=== PATIENT | female | born 1935 | race Caucasian/White ===

== ENCOUNTER 2018-12-07 11:26 | Inpatient (IN) ==
[2018-12-07] MEDS ORDERED: IOPAMIDOL 100 ML BOTTLE IV ONE (11:27)
[2018-12-07] MEDS ORDERED: 0.9 % SODIUM CHLORIDE 1,000 ML IV ONE ×2 (11:38→12:46)
[2018-12-07 11:52] LABS: POC Blood Urea Nitrogen 8 mg/dl (8-23); POC CO2 28 mmol/L (22-30); POC Calcium, Ionized 1.15 mmol/L (1.16-1.32); POC Chloride 98 mmol/L (96-108); POC Creatinine 0.8 mg/dl (0.6-1.1); POC Glucose, Random 251 mg/dL (70-105); POC Potassium 3.9 mmol/L (3.3-5.1); POC Sodium 137 mmol/L (133-145)
--- NOTE | 2018-12-07 11:52 | Emergency Department Note ---
Nausea/Vomiting/Diarrhea HPI - General Chief complaint: Nausea/Vomiting/Diarrhea Stated complaint: nausea, vomiting, decreased LOC Time Seen by Provider: 12/07/18 11:46 Source: EMS Mode of arrival: ambulatory Limitations: altered mental status - History of Present Illness HPI Narrative: This patient began to feel ill yesterday with some nausea vomiting fever and decreased LOC. She denies diarrhea or abdominal pain denies cough. She is not a very good historian. - Related Data Allergies Allergy/AdvReac Type Severity Reaction Status Date / Time "Diuretics" Allergy Intermediate Rash Uncoded 11/09/17 07:55 Review of Systems All systems ED: reviewed and negative except as stated. Past Medical History - Past Medical History Medical history: Reports: atrial fibrillation, CVA, hypertension, myocardial infarction, other (Essential tremor) Surgical history ED: Reports: hip replacement, hysterectomy - Social History smoking status: Never smoker Physical Exam Limitations: altered mental status General appearance: alert Head: atraumatic, normocephalic Eye: Present: normal appearance ENT: normal exam, mucous membranes moist Neck: Present: normal inspection Chest: Present: normal inspection Respiratory: Present: normal lung sounds bilaterally Cardiovascular: Present: regular rate, normal rhythm, normal heart sounds Abdominal: Present: soft. Absent: distention, tenderness Neurological: Present: alert Psychiatric: Present: normal affect Skin: Present: warm, dry Course Vital Signs Temperature 101.6 F H 12/07/18 11:29 Pulse Rate 115 H 12/07/18 11:29 Respiratory Rate 26 H 12/07/18 11:29 Blood Pressure 149/76 12/07/18 11:29 Pulse Oximetry (%) 92 12/07/18 11:29 Temperature 99.0 F 12/07/18 13:50 Pulse Rate 103 H 12/07/18 14:44 Respiratory Rate 25 H 12/07/18 14:44 Blood Pressure 127/66 12/07/18 14:31 Pulse Oximetry (%) 97 12/07/18 14:44 Nausea/Vomiting/Diarrhea - MDM Narrative Medical decision making narrative: Lab work did show a lactic acid of 3.2 with a normal white count with [address] of chest abdomen pelvis was unremarkable for any source of infection and urine was clear. We did culture her and gave her Rocephin and Levaquin empirically. Also received 2 L of LR. She will be admitted to the hospital by Dr. Cobb. - Lab Data Lab results reviewed: Yes I reviewed the patient's lab results. Result diagrams: 12/07/18 11:40 12/07/18 11:40 Lab Results 12/07/18 12/07/18 12/07/18 Range/Units 11:40 11:40 11:40 WBC 9.3 (4.5-11.0) K/mcL RBC 4.62 (4.00-5.20) M/mcL Hgb 13.9 (12.0-15.0) g/dL Hct 42.3 (36.0-48.0) % POC Hct 43.0 (36.0-48.0) % MCV 91.5 (80.0-100.0) fL MCH 30.1 (26.0-34.0) pg MCHC 32.9 (31.0-36.0) g/dL RDW 13.9 (11.5-14.5) % Plt Count 252 (140-440) K/mcL MPV 8.0 (7.4-10.4) fL Total Counted 100 Seg Neutrophils % 70 (38-78) % Band Neutrophils % 27 H (0-10) % Lymphocytes % 1 L (15-49) % Monocytes % (Manual) 2 (1-12) % Platelet Estimate Normal (NORMAL) RBC Morphology Normal (NORMAL) VBG Lactic Acid 3.2 H (0.5-2.0) mmol/L POC Sodium 137 (133-145) mmol/L Sodium 136 (133-145) mmol/L POC Potassium 3.9 (3.3-5.1) mmol/L Potassium 3.9 (3.3-5.1) mmol/L POC Chloride 98 (96-108) mmol/L Chloride 95 L (96-108) mmol/L Carbon Dioxide 25 (22-30) mmol/L POC Total CO2 28 (22-30) mmol/L Anion Gap 16.0 (8-16) POC BUN 8 (8-23) mg/dl BUN 9 (8-23) mg/dl Creatinine 1.0 (0.6-1.1) mg/dl POC Creatinine 0.8 (0.6-1.1) mg/dl GFR Calculation 51 Glucose 251 H (70-105) mg/dL POC Glucose 251 H (70-105) mg/dL Calcium 9.3 (8.6-10.4) mg/dl POC WB Ioniz Calcium 1.15 L (1.16-1.32) mmol/L Total Bilirubin 0.7 (0.0-1.0) mg/dL AST 43 H (0-37) U/l ALT 35 (0-40) U/l Alkaline Phosphatase 80 (39-117) U/L Total Protein 7.2 (5.9-8.4) gm/dL Albumin 3.9 (3.2-5.2) gm/dL Globulin 3.3 (2.2-3.7) gm/dL Albumin/Globulin Ratio 1.2 (1.0-2.3) Urine Color Urine Appearance Urine pH (5.0-9.0) Ur Specific [place] (1.000-1.035) Urine Protein (NEG) mg/dL Urine Glucose (UA) (NEG) mg/dL Urine Ketones (NEG) mg/dL Urine Occult Blood (<0.03) mg/dL Urine Nitrate (NEG) Urine Bilirubin (NEG) mg/dL Urine Urobilinogen (NEG) mg/dL Ur Leukocyte Esterase (NEG) /uL Ur Culture Indicated? 12/07/18 Range/Units 12:20 WBC (4.5-11.0) K/mcL RBC (4.00-5.20) M/mcL Hgb (12.0-15.0) g/dL Hct (36.0-48.0) % POC Hct (36.0-48.0) % MCV (80.0-100.0) fL MCH (26.0-34.0) pg MCHC (31.0-36.0) g/dL RDW (11.5-14.5) % Plt Count (140-440) K/mcL MPV (7.4-10.4) fL Total Counted Seg Neutrophils % (38-78) % Band Neutrophils % (0-10) % Lymphocytes % (15-49) % Monocytes % (Manual) (1-12) % Platelet Estimate (NORMAL) RBC Morphology (NORMAL) VBG Lactic Acid (0.5-2.0) mmol/L POC Sodium (133-145) mmol/L Sodium (133-145) mmol/L POC Potassium (3.3-5.1) mmol/L Potassium (3.3-5.1) mmol/L POC Chloride (96-108) mmol/L Chloride (96-108) mmol/L Carbon Dioxide (22-30) mmol/L POC Total CO2 (22-30) mmol/L Anion Gap (8-16) POC BUN (8-23) mg/dl BUN (8-23) mg/dl Creatinine (0.6-1.1) mg/dl POC Creatinine (0.6-1.1) mg/dl GFR Calculation Glucose (70-105) mg/dL POC Glucose (70-105) mg/dL Calcium (8.6-10.4) mg/dl POC WB Ioniz Calcium (1.16-1.32) mmol/L Total Bilirubin (0.0-1.0) mg/dL AST (0-37) U/l ALT (0-40) U/l Alkaline Phosphatase (39-117) U/L Total Protein (5.9-8.4) gm/dL Albumin (3.2-5.2) gm/dL Globulin (2.2-3.7) gm/dL Albumin/Globulin Ratio (1.0-2.3) Urine Color Yellow Urine Appearance Clear Urine pH 8.0 (5.0-9.0) Ur Specific [place] 1.013 (1.000-1.035) Urine Protein Neg (NEG) mg/dL Urine Glucose (UA) 50 A (NEG) mg/dL Urine Ketones 5/tr A (NEG) mg/dL Urine Occult Blood Neg (<0.03) mg/dL Urine Nitrate Neg (NEG) Urine Bilirubin Neg (NEG) mg/dL Urine Urobilinogen Neg (NEG) mg/dL Ur Leukocyte Esterase Neg (NEG) /uL Ur Culture Indicated? No - Radiology Data Radiology results reviewed: Yes I reviewed the patient's radiology results. Disposition Pt seen by [facility]/PA only: No Clinical Impression: Sepsis Disposition: Xfer As Inpt ([facility]) Referrals: Ivette Hutson MD [Primary Care Provider] - Time of Disposition: 15:18
--- NOTE | 2018-12-07 12:23 | XRay Report ---
HISTORY: Fever nausea and vomiting FINDINGS: There is a small streaky opacity adjacent to the left diaphragm. This could be atelectasis or inflammation. The remainder the lung campuzano are clear. The heart size is normal. The aorta is mildly tortuous. Comparison with the prior exam from 06/27/14 shows a small infiltrate at the left lung base is a new finding. IMPRESSION: Mild inflammation or discoid atelectasis at the left lung base Interpreted and Authenticated by: Horace Brice 12/07/18
[2018-12-07 12:25] LABS: Hematocrit 42.3 % (36.0-48.0); Hemoglobin 13.9 g/dL (12.0-15.0); Mean Cell Volume 91.5 fL (80.0-100.0); Mean Corpuscular HGB Conc 32.9 g/dL (31.0-36.0); Platelet Count 252 K/mcL (140-440); RBC 4.62 M/mcL (4.00-5.20); Red Cell Distribution Width 13.9 % (11.5-14.5); WBC 9.3 K/mcL (4.5-11.0)
[2018-12-07 12:44] LABS: ALT/SGPT 35 U/l (0-40); AST/SGOT 43 U/l (0-37); Albumin 3.9 gm/dL (3.2-5.2); Albumin/Globulin Ratio 1.2 (1.0-2.3); Alkaline Phosphatase 80 U/L (39-117); Bilirubin,Total 0.7 mg/dL (0.0-1.0); Blood Urea Nitrogen 9 mg/dl (8-23); Calcium 9.3 mg/dl (8.6-10.4); Carbon Dioxide 25 mmol/L (22-30); Chloride 95 mmol/L (96-108); Globulin 3.3 gm/dL (2.2-3.7); Glomerular Filtration Rate 51; Glucose 251 mg/dL (70-105)
[2018-12-07] MEDS ORDERED: ACETAMINOPHEN 325 MG TABLET PO ONE (12:50)
[2018-12-07 12:52] LABS: Band Neutrophils % 27 % (0-10); Lymphocytes % 1 % (15-49); Monocytes % (Manual) 2 % (1-12); Platelet Estimate NORMAL (NORMAL); RBC Morphology NORMAL (NORMAL); Segmented Neutrophils % 70 % (38-78)
[2018-12-07 13:15] LABS: Appearance,Urine CLEAR; Bilirubin,Urine NEG (NEG); Color,Urine YELLOW; Culture Indicated,Urine NO; Glucose,Urine (UA) 50 mg/dL (NEG); Ketones,Urine 5/TR mg/dL (NEG); Leukocyte Esterase,Urine NEG /uL (NEG); Nitrate,Urine NEG (NEG); Protein,Urine NEG (NEG); Specific Gravity,Urine 1.013 (1.000-1.035); Urine Blood NEG mg/dL (<0.03); Urobilinogen,Urine NEG (NEG)
[2018-12-07] MEDS ORDERED: LEVOFLOXACIN 750 MG/150 ML BAG IV ONE (15:02)
[2018-12-07] MEDS ORDERED: cefTRIAXone 1 GM VIAL IV ONE (15:02)
--- NOTE | 2018-12-07 15:15 | Cat Scan Report ---
History: Sepsis of unknown etiology, pain in the chest and abdomen TECHNIQUE: The patient was imaged following oral and intravenous contrast scanning from the thoracic inlet through the symphysis pubis. Sagittal and coronal reformats were created along with axial MIPS images of the chest. The radiation exposure was limited using dose reduction technology. CHEST: There are bands of scar or discoid atelectasis in both lung bases as well as the inferior lateral segment of the right middle lobe and inferior segment of lingula. There is mild traction bronchiectasis in the medial basal segment of the right lower lobe. There is no evidence of pneumonia, pulmonary mass, abscess or pleural effusion. No abnormally enlarged lymph nodes are present. The central pulmonary arteries are normal without evidence of emboli. The heart is normal in size and contour. A moderate amount calcified plaque is present in the left anterior descending and circumflex arteries. Is also moderate amount of plaque along the wall of a normal caliber thoracic aorta. Abdomen and pelvis: Patient has moderately severe fatty infiltration throughout the liver. Liver is normal in size and there is no evidence of a mass. The gallbladder is been removed. There is some air within nondilated intrahepatic ducts. This is probably due to prior sphincterotomy. The bile ducts are not abnormally distended. There is no evidence of a bile leak. The spleen is normal in size and homogeneous. Is no evidence of mass or inflammation the pancreas. Patient has mild bilateral adrenal hyperplasia. A 7 mm cortical cyst is present laterally in the middle third of the left kidney. The kidneys are otherwise normal without evidence of a mass, calculus, hydronephrosis or inflammation. Oral contrast has passed through stomach and normal small intestine into the colon without obstruction. There are multiple noninflamed diverticula in the sigmoid colon. No mass, abscess or ascites or lymphadenopathy are present within the abdomen or pelvis. There is a moderate amount calcified plaque along the wall of a normal caliber abdominal aorta. Patient has fusion in the lower lumbar spine and degenerative disc disease throughout the mid and upper lumbar spine and lower thoracic spine. IMPRESSION: Moderately severe fatty infiltration throughout the liver Sigmoid diverticulosis Scar versus atelectasis in both lung bases No evidence of pneumonia and no abdominal abscess Dr. Meza was called with the results Interpreted and Authenticated by: Horace Brice 12/07/18
--- NOTE | 2018-12-07 15:51 | Internal Med History&Physical ---
Medical - H&P: HPI Patient information: Note initiated : 12/07/18 at 3:44 pm Service Date, if different from initiated Date: [] Patient: Elva Osuna a 83 y/o F admitted on for nausea, vomiting, decreased LOC. Chief Complaint: [] History of present illness: Ms. Osuna is a 83 year old F lives by herself with family living next to presents to the emergency room today for evaluation of fever altered mental sta tus and nausea and vomiting abdominal pain. The patient was normal last night around 8 PM when the family checked on her, this morning when the [id number] came on to check on her at around 8:00 the patient was sitting in the chair, confused with vomit all around her, vomit was dark had some food material in it no obvious blood. The patient was not responding appropriately to the questions appeared to be warm and was therefore brought to the emergency room for further evaluation On my evaluation patient appeared alert and oriented, according to the patient and the family she is nearly back to baseline symptoms have resolved since admission, she denies any eating of stale food or eating outside denies any sick contacts, denies any black stools, admits to having severe GERD or reflux d isease takes cholestyramine for that and Prilosec according to her. She admits to epigastric abdominal pain but denies any crampy lower abdominal pain denies any urinary complaints denies any constipation or diarrhea denies any melena. The patient has chronic headache and chronic blurring of vision denies any difficulty in swallowing denies any shortness of breath or chest pain does have some chronic cough. Patient has chronic aches and pains but no new joint pain skin rashes, she has history of depression that seems to be stable. At baseline patient is fairly independent and is able to carry out her activities of daily living without any support. On presenting to the emergency room patient was febrile with a temperature of more than 102, tachycardic and intermittently tachypneic with respirations more than 20. Blood pressure was stable. Labs show a normal WBC count and normal hemoglobin platelets 252 however the bands are 27 lactic acid elevated at 3.2 chemistries unremarkable glucose elevated at 251 AST 43 Chest x-ray shows mild inflammation versus scarring at the left lung base, CT chest abdomen pelvis according to the ER provider is interpreted as negative patient does have diverticulosis. Given the fact that patient had met the sepsis screen, has elevated lactic acid and fever she is being admitted to the hospital for further management All systems: reviewed and no additional remarkable complaints except as stated (As per HPI rest negative) Medical - H&P: PMH Medical history: Hypertension Diabetes, prediabetes according to patient Tachycardia patient on Inderal Hyperlipidemia History of coronary artery disease status post [place] when she had a stroke History of CVA with left-sided weakness Surgical history: History of cholecystectomy History of hysterectomy Shoulder surgery Hip replacement Family history: reviewed and not pertinent Pertinent family history: Brother has diabetes Social history: Lives by herself Fairly independent in activities of daily living Denies any history of smoking Denies drinking alcohol Denies any other recreational drug use Medical - H&P: Meds Home Medications Medication Instructions Recorded Confirmed Type Aspirin [Lite Coat Aspirin] 325 mg PO DAILY 12/07/18 12/07/18 History Citalopram [Celexa] 20 mg PO DAILY 12/07/18 12/07/18 History Escitalopram [Lexapro] 10 mg PO DAILY 12/07/18 12/07/18 History Estradiol [Estrace] 2 mg PO DAILY 12/07/18 12/07/18 History FLUoxetine HCL [PROzac] 10 mg PO DAILY 12/07/18 12/07/18 History LORazepam [Ativan] 0.5 mg PO HS 12/07/18 12/07/18 History Losartan [Cozaar] 50 mg PO DAILY 12/07/18 12/07/18 History Omeprazole [PriLOSEC] 20 mg PO DAILY 12/07/18 12/07/18 History Penicillin Vk [Pen Vk] 500 mg PO QID 12/07/18 12/07/18 History Propranolol [Inderal] 10 mg PO TID 12/07/18 12/07/18 History Simvastatin [Zocor] 20 mg PO HS 12/07/18 12/07/18 History Allergies Allergy/AdvReac Type Severity Reaction Status Date / Time "Diuretics" Allergy Intermediate Rash Uncoded 11/09/17 07:55 Medical - H&P: Exam - Constitutional Vitals: Temp Pulse Resp BP Pulse Ox 99.0 F 102 H 25 H 121/62 92 12/07/18 13:50 12/07/18 15:16 12/07/18 15:16 12/07/18 15:16 12/07/18 15:16 Exam: GENERAL: The patient is a well-developed, well-nourished in no apparent distress. Is alert and oriented x3. VITAL SIGNS: Reviewed and as noted elsewhere. HEENT: Head is normocephalic and atraumatic. Extraocular muscles are intact. Pupils are equal, round, and reactive to light. Nares appeared normal. Mouth appears any without lesions. Mucous membranes are moist. NECK: Normal to inspection, Supple, No lymphadenopathy or thyromegaly. LUNGS: Air entry equal on both sides, no wheezing, crackles or rhonchi noted. No accessory muscles of respiration HEART: Regular rate and rhythm normal, S1 and S2 heard, no Gallop, S3 or Rub Noted, No Gross murmur heard. ABDOMEN: Soft, mild epigastric tenderness, abdomen is nondistended. Positive bowel sounds. No hepatomegaly noted, no obvious splenomegaly was noted. EXTREMITIES: No cyanosis, clubbing, rash, lesions or edema. NEUROLOGIC: Cranial nerves II through XII are grossly intact. Motor and Sensory System Grossly Intact PSYCHIATRIC: Normal affect, Normal Mood. Appropriate Behavior. SKIN: No ulceration or wounds noted, No jaundice, No rash noted. Medical - H&P: Reslt - Labs CBC & Chem 7: 12/07/18 11:40 12/07/18 11:40 Labs: Short CBC 12/07/18 Range/Units 11:40 WBC 9.3 (4.5-11.0) K/mcL Hgb 13.9 (12.0-15.0) g/dL Hct 42.3 (36.0-48.0) % Plt Count 252 (140-440) K/mcL BMP 12/07/18 11:40 Sodium 136 Potassium 3.9 Chloride 95 L Carbon Dioxide 25 BUN 9 Creatinine 1.0 Glucose 251 H Calcium 9.3 Liver Function 12/07/18 Range/Units 11:40 Total Bilirubin 0.7 (0.0-1.0) mg/dL AST 43 H (0-37) U/l ALT 35 (0-40) U/l Alkaline Phosphatase 80 (39-117) U/L Albumin 3.9 (3.2-5.2) gm/dL Urine 12/07/18 Range/Units 12:20 Urine Color Yellow Urine Appearance Clear Urine pH 8.0 (5.0-9.0) Ur Specific [place] 1.013 (1.000-1.035) Urine Protein Neg (NEG) mg/dL Urine Glucose (UA) 50 A (NEG) mg/dL Medical - H&P: A/P - Narrative A/P Narrative: A/P Sepsis, Q sofa score of 2 -Source of infection uncertain, given likely GI pathology IV Zosyn for now -Blood cultures have been sent. -pt has responded to initial resuscitation Nausea/VOmiting -trend Hb, IV PPI -IV fluids, symptomatic management. Lactic acid -IV fluids, trend lactate, Hypertension -bp borderline in ER, monitor for now -Hold bp x 24 hrs for now -resume once bp stable x 24 hrs Hyperlipidemia -resume statin Depression /Anxiety -Multiple meds noted on file, -not sure if patient would be on all these meds as they all belong to same group -resume lexapro, will need to verify the rest Chronic pain -apap for now History of CVA/CAD -continue asa DVT hep sq DNR code Regular diet.
[2018-12-07] MEDS ORDERED: ACETAMINOPHEN 325 MG TABLET PO PRN (16:59)
[2018-12-07] MEDS ORDERED: NALOXONE HCL 0.4 MG/ML VIAL IV PRN (16:59)
[2018-12-07] MEDS ORDERED: ONDANSETRON 4 MG/2 ML VIAL IV PRN (16:59)
[2018-12-07] MEDS: LACTATED RINGERS 1,000 ML IV SCH ×2 (17:15→21:59)
[2018-12-07] MEDS: PIPERACILLIN SODIUM/TAZOBACTAM 3.375 GM in DEXTROSE 5% IN WATER 50 ML IV SCH ×2 (18:30→23:48)
[2018-12-07] MEDS: HYDROcodone/APAP 10/325MG TABLET PO PRN (19:38)
[2018-12-07] MEDS ORDERED: SIMVASTATIN 20 MG TABLET PO SCH (21:00)
[2018-12-07] MEDS ORDERED: LORazepam 0.5 MG TABLET PO SCH (21:00)
[2018-12-07] MEDS: 0.9 % SODIUM CHLORIDE 10 ML SYRINGE IV SCH (21:01)
[2018-12-07] MEDS: HEPARIN 5,000 UNIT/ML VIAL SQ SCH (21:01)
[2018-12-08] MEDS ORDERED: HYDROCODONE PO SCH
[2018-12-08] MEDS ORDERED: ACETAMINOPHEN PO SCH
[2018-12-08] MEDS: HYDROcodone/APAP 10/325MG TABLET PO PRN ×4 (03:59→23:25)
[2018-12-08] MEDS: PIPERACILLIN SODIUM/TAZOBACTAM 3.375 GM in DEXTROSE 5% IN WATER 50 ML IV SCH ×3 (05:42→16:54)
[2018-12-08] MEDS: 0.9 % SODIUM CHLORIDE 10 ML SYRINGE IV SCH ×3 (05:43→21:07)
[2018-12-08 07:19] LABS: Basophils # (Auto) 0 K/mcL (0.0-0.3); Basophils % (Auto) 0.3 % (0.0-2.0); Eosinophils # (Auto) 0 K/mcL (0.0-0.7); Eosinophils % (Auto) 0.1 % (0.0-7.0); Granulocytes % (Auto) 86.1 % (38.0-78.0); Hematocrit 36.3 % (36.0-48.0); Hemoglobin 11.9 g/dL (12.0-15.0); Lymphocytes # (Auto) 0.8 K/mcL (1.5-4.8); Lymphocytes % (Auto) 7.7 % (15.5-49.0); Mean Cell Volume 92.7 fL (80.0-100.0); Mean Corpuscular HGB Conc 32.8 g/dL (31.0-36.0); Mean Platelet Volume 8.4 fL (7.4-10.4); Monocytes # (Auto) 0.6 K/mcL (0.1-0.9); Monocytes % (Auto) 5.8 % (1.0-12.0); Platelet Count 218 K/mcL (140-440); RBC 3.91 M/mcL (4.00-5.20); Red Cell Distribution Width 13.6 % (11.5-14.5)
[2018-12-08 07:53] LABS: ALT/SGPT 27 U/l (0-40); AST/SGOT 29 U/l (0-37); Albumin/Globulin Ratio 0.9 (1.0-2.3); Alkaline Phosphatase 54 U/L (39-117); Bilirubin,Direct < 0.2 mg/dL (0.0-0.3); Bilirubin,Total 0.6 mg/dL (0.0-1.0); Blood Urea Nitrogen 7 mg/dl (8-23); Calcium 8.5 mg/dl (8.6-10.4); Carbon Dioxide 23 mmol/L (22-30); Chloride 101 mmol/L (96-108); Globulin 3.2 gm/dL (2.2-3.7); Glomerular Filtration Rate 67; Glucose 146 mg/dL (70-105); Lactate Dehydrogenase 215 U/L (94-250); Triglycerides 72 mg/dl (<150)
[2018-12-08] MEDS ORDERED: MAGNESIUM SULFATE 2 GM/50 ML BAG IV ONE (08:01)
[2018-12-08] MEDS: HEPARIN 5,000 UNIT/ML VIAL SQ SCH ×2 (08:35→21:06)
[2018-12-08] MEDS ORDERED: ASPIRIN 325 MG ENTERIC COATED TABLET PO SCH (09:00)
[2018-12-08] MEDS ORDERED: CHOLESTYRAMINE/ASPARTAME 4 GM POWD.PACK PO SCH (09:00)
[2018-12-08] MEDS ORDERED: ESCITALOPRAM 10 MG TABLET PO SCH (09:00)
[2018-12-08] MEDS ORDERED: ACETAMINOPHEN 325 MG TABLET PO PRN (10:03)
[2018-12-08] MEDS ORDERED: NALOXONE HCL 0.4 MG/ML VIAL IV PRN (10:03)
[2018-12-08] MEDS ORDERED: ONDANSETRON 4 MG/2 ML VIAL IV PRN (10:03)
--- NOTE | 2018-12-08 10:27 | Internal Med Progress Note ---
Medical - PN: Subj Patient information: Note initiated : 12/08/18 at 10:25 am Service Date, if different from initiated Date: [] Patient: Elva Osuna a 83 y/o F admitted on 12/07/18 for nausea, vomiting, decreased LOC. Chief Complaint: [] Interval history: Ms. Osuna is a 83 year old F lives by herself with family living next to presents to the emergency room today for evaluation of fever altered mental sta tus and nausea and vomiting abdominal pain. The patient was normal last night around 8 PM when the family checked on her, this morning when the [id number] came on to check on her at around 8:00 the patient was sitting in the chair, confused with vomit all around her, vomit was dark had some food material in it no obvious blood. The patient was not responding appropriately to the questions appeared to be warm and was therefore brought to the emergency room for further evaluation On my evaluation patient appeared alert and oriented, according to the patient and the family she is nearly back to baseline symptoms have resolved since admission, she denies any eating of stale food or eating outside denies any sick contacts, denies any black stools, admits to having severe GERD or reflux d isease takes cholestyramine for that and Prilosec according to her. She admits to epigastric abdominal pain but denies any crampy lower abdominal pain denies any urinary complaints denies any constipation or diarrhea denies any melena. The patient has chronic headache and chronic blurring of vision denies any difficulty in swallowing denies any shortness of breath or chest pain does have some chronic cough. Patient has chronic aches and pains but no new joint pain skin rashes, she has history of depression that seems to be stable. At baseline patient is fairly independent and is able to carry out her activities of daily living without any support. On presenting to the emergency room patient was febrile with a temperature of more than 102, tachycardic and intermittently tachypneic with respirations more than 20. Blood pressure was stable. Labs show a normal WBC count and normal hemoglobin platelets 252 however the bands are 27 lactic acid elevated at 3.2 chemistries unremarkable glucose elevated at 251 AST 43 Chest x-ray shows mild inflammation versus scarring at the left lung base, CT chest abdomen pelvis according to the ER provider is interpreted as negative patient does have diverticulosis. Given the fact that patient had met the sepsis screen, has elevated lactic acid and fever she is being admitted to the hospital for further management 12/08 Patient seen and examined, no acute overnight events tolerating p.o. diet well sitting comfortably in the chair Labs are stable lactic acidosis resolved Discontinue Holman catheter transfer to medical status Microbiology is negative so far Pertinent ROS: Denies headache, dizziness Denies chest pain, palpitations Denies cough or shortness of breath Denies abdominal pain, nausea or vomiting. - Constitutional Vitals: Vital Signs Temp Pulse Resp BP Pulse Ox 98.0 F 99 H 24 H 132/69 93 12/08/18 07:44 12/08/18 08:00 12/08/18 07:44 12/08/18 07:44 12/08/18 07:44 Period Temp Pulse Resp BP Sys/Brooke Pulse Ox Last 24 Hr 97.5 F-101.6 F 93-115 16-34 95-162/62-87 90-100 Intake and Output 12/07/18 12/08/18 12/08/18 21:59 05:59 13:59 Intake Total 2200 1350 410 Output Total 2700 800 800 Balance -500 550 -390 Weight 185 lb 9.6 oz 185 lb 9.6 oz Patient Weight 12/09/18 05:59 Weight 185 lb 9.6 oz Intake & Output: Intake & Output 12/07/18 12/08/18 12/08/18 21:59 05:59 13:59 Intake Total 2200 1350 410 Output Total 2700 800 800 Balance -500 550 -390 Weight 185 lb 9.6 oz 185 lb 9.6 oz Intake: IV 2200 1050 50 Sodium Chloride 0.9% 1,000 ml @ 1000 Wide Open IV BOLUS ONE Rx#: [id number] Lactated Ringers 1,000 ml @ 250 1000 mls/hr IV .Q4H NARA Rx#: [id number] Zosyn 3.375 gm In Dextrose 5% 50 50 50 in Water 50 ml @ 100 mls/hr IV Q6H NARA Rx#:[id number] Oral 300 360 Output: Urine Catheter Amount 1650 800 800 Void Amount 1050 Other: Meal Pckt saltines Breakfast Percent of Meal Consumed 100% 90 Feeding Ability Independent Independent Urine Appearance Clear Sediment Uretheral (Holman) Clear Clear Urine Color Pale Dark Yellow Uretheral (Holman) Pale Urine Odor Normal Strong Uretheral (Holman) Normal Normal Exam: Constitutional; Afebrile, cooperative, alert, not in distress. Eyes- No icterus, , No periorbital swelling Ears- Ext ear normal, hearing normal to conversation. Neck- Midline trachea, supple Respiratory system: Air Entry equal on both sides, No crackles or wheezing, no rhonchi. CVS- Rate rhythm regular, S1,S2 heard, no gallop, no rub. Abdomen- Soft nontender abdomen, no organomegaly, no tenderness, no guarding or rigidity, [employer]- AOOx3, moving all extremities, no gross focal deficit noted. Medical - PN: Obj Da - Labs CBC & Chem 7: 12/08/18 03:45 12/08/18 03:45 Labs: Abnormal Lab Results 12/08/18 12/08/18 12/07/18 03:45 03:45 12:20 RBC 3.91 L Hgb 11.9 L Gran % 86.1 H Lymph % (Auto) 7.7 L Gran # 8.6 H Lymph # (Auto) 0.8 L Band Neutrophils % Lymphocytes % VBG Lactic Acid Chloride BUN 7 L Glucose 146 H POC Glucose Calcium 8.5 L POC WB Ioniz Calcium Phosphorus 2.0 L GGT 107 H AST Albumin 3.0 L Albumin/Globulin Ratio 0.9 L Urine Glucose (UA) 50 A Urine Ketones 5/tr A 12/07/18 12/07/18 12/07/18 11:40 11:40 11:40 RBC Hgb Gran % Lymph % (Auto) Gran # Lymph # (Auto) Band Neutrophils % 27 H Lymphocytes % 1 L VBG Lactic Acid 3.2 H Chloride 95 L BUN Glucose 251 H POC Glucose 251 H Calcium POC WB Ioniz Calcium 1.15 L Phosphorus GGT AST 43 H Albumin Albumin/Globulin Ratio Urine Glucose (UA) Urine Ketones Meds: Medications Acetaminophen (Tylenol) 650 mg PO Q6HP PRN PRN Reason: PAIN/FEVER > 101 Hydrocodone Bitart/Acetaminophen ([place] 10/325mg) 1 tab PO Q6HP PRN PRN Reason: Pain Aspirin (Ecotrin) 325 mg PO DAILY [facility] Cholestyramine Resin (Questran Light) 4 gm PO QDAY NARA Heparin Sodium (Porcine) (Heparin) 5,000 unit SQ Q12 NARA Piperacillin Sod/Tazobactam (Sod 3.375 gm/ Dextrose) 50 mls @ 100 mls/hr IV Q6H NARA; Protocol Lorazepam (Ativan) 0.5 mg PO HS NARA Naloxone HCl (Narcan) 0.1 mg IV Q2MIN PRN PRN Reason: Opiate Reversal Ondansetron HCl (Zofran) 4 mg IV Q4HP PRN PRN Reason: Nausea And Vomiting Simvastatin (Zocor) 20 mg PO HS NARA Sodium Chloride (Saline Flush) 10 ml IV Q8 [facility] Medical - PN: A/P - Time Spent With Patient Total time spent is greater than 50% in coordination of care (as documented) at patient's floor/unit and/or counseling patient: - Narrative A/P Narrative: A/P Sepsis, Q sofa score of 2 -sepsis resolved -Source of infection uncertain, given likely GI pathology IV Zosyn for now -Blood cultures have been sent, await results Nausea/VOmiting -trend Hb, IV PPI -IV fluids, symptomatic management. -resolved, pt tolerating po diet now. Lactic acid -resolved Hypertension -resume home bp meds now, that bp is stable Hyperlipidemia -resumed statin Depression /Anxiety -Multiple meds noted on file, initially however on further review patient is not taking any medications for this issue. Discontinue all medication Chronic pain -apap for now History of CVA/CAD -continue asa DVT hep sq DNR code Regular diet. Medical - PN: Qual - Stroke Symptom Onset Unknown: No - VTE Deep Vein Thrombosis/Pulmonary Embolism Present on Admission: No
[2018-12-08] MEDS: LOSARTAN 50 MG TABLET PO SCH (10:58)
--- NOTE | 2018-12-08 12:56 | Internal Med Progress Note ---
Medical - PN: Subj Patient information: Note initiated : 12/08/18 at 12:51 pm Service Date, if different from initiated Date: [] Patient: Elva Osuna a 83 y/o F admitted on 12/07/18 for nausea, vomiting, decreased LOC. Chief Complaint: [] Interval history: Ms. Osuna is a 83 year old F lives by herself with family living next to presents to the emergency room today for evaluation of fever altered mental sta tus and nausea and vomiting abdominal pain. The patient was normal last night around 8 PM when the family checked on her, this morning when the ctorhzgh-pe-fzl came on to check on her at around 8:00 the patient was sitting in the chair, confused with vomit all around her, vomit was dark had some food material in it no obvious blood. The patient was not responding appropriately to the questions appeared to be warm and was therefore brought to the emergency room for further evaluation On my evaluation patient appeared alert and oriented, according to the patient and the family she is nearly back to baseline symptoms have resolved since admission, she denies any eating of stale food or eating outside denies any sick contacts, denies any black stools, admits to having severe GERD or reflux d isease takes cholestyramine for that and Prilosec according to her. She admits to epigastric abdominal pain but denies any crampy lower abdominal pain denies any urinary complaints denies any constipation or diarrhea denies any melena. The patient has chronic headache and chronic blurring of vision denies any difficulty in swallowing denies any shortness of breath or chest pain does have some chronic cough. Patient has chronic aches and pains but no new joint pain skin rashes, she has history of depression that seems to be stable. At baseline patient is fairly independent and is able to carry out her activities of daily living without any support. On presenting to the emergency room patient was febrile with a temperature of more than 102, tachycardic and intermittently tachypneic with respirations more than 20. Blood pressure was stable. Labs show a normal WBC count and normal hemoglobin platelets 252 however the bands are 27 lactic acid elevated at 3.2 chemistries unremarkable glucose elevated at 251 AST 43 Chest x-ray shows mild inflammation versus scarring at the left lung base, CT chest abdomen pelvis according to the ER provider is interpreted as negative patient does have diverticulosis. Given the fact that patient had met the sepsis screen, has elevated lactic acid and fever she is being admitted to the hospital for further management 12/08 Patient seen and examined, no acute overnight events tolerating p.o. diet well sitting comfortably in the chair Labs are stable lactic acidosis resolved Discontinue Holman catheter transfer to medical status Microbiology is negative so far 12/09 - Constitutional Vitals: Vital Signs Temp Pulse Resp BP Pulse Ox 98.0 F 99 H 24 H 132/69 93 12/08/18 07:44 12/08/18 10:28 12/08/18 07:44 12/08/18 07:44 12/08/18 07:44 Period Temp Pulse Resp BP Sys/Brooke Pulse Ox Last 24 Hr 97.5 F-101.6 F 93-112 16-34 95-162/62-85 91-100 Intake and Output 12/07/18 12/08/18 12/08/18 21:59 05:59 13:59 Intake Total 2200 1350 410 Output Total 2700 800 800 Balance -500 550 -390 Weight 84.187 kg 84.187 kg Patient Weight 12/09/18 05:59 Weight 84.187 kg Intake & Output: Intake & Output 12/07/18 12/08/18 12/08/18 21:59 05:59 13:59 Intake Total 2200 1350 410 Output Total 2700 800 800 Balance -500 550 -390 Weight 84.187 kg 84.187 kg Intake: IV 2200 1050 50 Sodium Chloride 0.9% 1,000 ml @ 1000 Wide Open IV B[facility] Rx#: [id number] Lactated Ringers 1,000 ml @ 250 1000 mls/hr IV .Q4H [facility] Rx#: [id number] Zosyn 3.375 gm In Dextrose 5% 50 50 50 in Water 50 ml @ 100 mls/hr IV Q6H [facility] Rx#:[id number] Oral 300 360 Output: Urine Catheter Amount 1650 800 800 Void Amount 1050 Other: Meal Pckt saltines Breakfast Percent of Meal Consumed 100% 90 Feeding Ability Independent Independent Urine Appearance Clear Sediment Uretheral (Holman) Clear Clear Urine Color Pale Dark Yellow Uretheral (Holman) Pale Urine Odor Normal Strong Uretheral (Holman) Normal Normal Exam: General: Alert, Awake, No acute Distress Eyes/N/T: EOMI, Head/Neck: neck supple, CV: RRR, No murmurs, Pulm: Clear b/l, no wheezing/rhonchi/rales Abd: soft, nontender, +BS x4 Ext: no clubbing/cyanosis/edema Neuro: Alert, no focal deficits, moves all extremities, Skin: warm/dry Medical - PN: Obj Da - Labs CBC & Chem 7: 12/08/18 03:45 12/08/18 03:45 Labs: Abnormal Lab Results 12/08/18 12/08/18 12/07/18 03:45 03:45 12:20 RBC 3.91 L Hgb 11.9 L Gran % 86.1 H Lymph % (Auto) 7.7 L Gran # 8.6 H Lymph # (Auto) 0.8 L Band Neutrophils % Lymphocytes % VBG Lactic Acid Chloride BUN 7 L Glucose 146 H POC Glucose Calcium 8.5 L POC WB Ioniz Calcium Phosphorus 2.0 L GGT 107 H AST Albumin 3.0 L Albumin/Globulin Ratio 0.9 L Urine Glucose (UA) 50 A Urine Ketones 5/tr A 12/07/18 12/07/18 12/07/18 11:40 11:40 11:40 RBC Hgb Gran % Lymph % (Auto) Gran # Lymph # (Auto) Band Neutrophils % 27 H Lymphocytes % 1 L VBG Lactic Acid 3.2 H Chloride 95 L BUN Glucose 251 H POC Glucose 251 H Calcium POC WB Ioniz Calcium 1.15 L Phosphorus GGT AST 43 H Albumin Albumin/Globulin Ratio Urine Glucose (UA) Urine Ketones Meds: Medications Acetaminophen (Tylenol) 650 mg PO Q6HP PRN PRN Reason: PAIN/FEVER > 101 Hydrocodone Bitart/Acetaminophen ([place] 10/325mg) 1 tab PO Q6HP PRN PRN Reason: Pain Last Admin: 12/08/18 10:58 Dose: 1 tab Documented by: Aspirin (Ecotrin) 325 mg PO DAILY [facility] Cholestyramine Resin (Questran Light) 4 gm PO QDAY [facility] Heparin Sodium (Porcine) (Heparin) 5,000 unit SQ Q12 [facility] Piperacillin Sod/Tazobactam (Sod 3.375 gm/ Dextrose) 50 mls @ 100 mls/hr IV Q6H [facility]; Protocol Lorazepam (Ativan) 0.5 mg PO HS [facility] Losartan Potassium (Cozaar) 50 mg PO DAILY [facility] Last Admin: 12/08/18 10:58 Dose: 50 mg Documented by: Naloxone HCl (Narcan) 0.1 mg IV Q2MIN PRN PRN Reason: Opiate Reversal Ondansetron HCl (Zofran) 4 mg IV Q4HP PRN PRN Reason: Nausea And Vomiting Propranolol HCl (Inderal) 10 mg PO TID [facility] Simvastatin (Zocor) 20 mg PO HS [facility] Sodium Chloride (Saline Flush) 10 ml IV Q8 [facility] Medical - PN: A/P - Time Spent With Patient Total time spent is greater than 50% in coordination of care (as documented) at patient's floor/unit and/or counseling patient: - Narrative A/P Narrative: A: *Sepsis: resolved -Source of infection uncertain, likely GI pathology -Lactic acidosis resolved -now afebrile *N/V: *HTN/HLD: *Depression/anxiety: *Chronic pain: *h/o CAD/CVA: on ASA/BB/Statin *GERD * P: -Zosyn, blood cultures pending -IVF - -Continue home ARB/BB -cont home ASA/statin -IV PPI - -ppx: Heparin/home ppi Medical - PN: Qual - Stroke Symptom Onset Unknown: No - VTE Deep Vein Thrombosis/Pulmonary Embolism Present on Admission: No
[2018-12-08] MEDS ORDERED: CALCIUM CARBONATE 500 MG TAB.CHEW CHEWED PRN (15:05)
[2018-12-08] MEDS: PROPRANOLOL 10 MG TABLET PO SCH ×2 (16:48→21:06)
[2018-12-08] MEDS ORDERED: LORazepam 0.5 MG TABLET PO SCH (21:00)
[2018-12-08] MEDS ORDERED: SIMVASTATIN 20 MG TABLET PO SCH (21:00)
[2018-12-09] MEDS: PIPERACILLIN SODIUM/TAZOBACTAM 3.375 GM in DEXTROSE 5% IN WATER 50 ML IV SCH ×2 (05:29)
[2018-12-09] MEDS: 0.9 % SODIUM CHLORIDE 10 ML SYRINGE IV SCH (05:29)
--- NOTE | 2018-12-09 07:10 | Internal Med Progress Note ---
Medical - PN: Subj Patient information: Note initiated : 12/09/18 at 7:08 am Service Date, if different from initiated Date: [] Patient: Elva Osuna a 83 y/o F admitted on 12/07/18 for nausea, vomiting, decreased LOC. Chief Complaint: [] Interval history: Ms. Osuna is a 83 year old F lives by herself with family living next to presents to the emergency room today for evaluation of fever altered mental stat us and nausea and vomiting abdominal pain. The patient was normal last night around 8 PM when the family checked on her, this morning when the [id number] came on to check on her at around 8:00 the patient was sitting in the chair, confused with vomit all around her, vomit was dark had some food material in it no obvious blood. The patient was not responding appropriately to the questions appeared to be warm and was therefore brought to the emergency room for further evaluation On my evaluation patient appeared alert and oriented, according to the patient and the family she is nearly back to baseline symptoms have resolved since admission, she denies any eating of stale food or eating outside denies any sick contacts, denies any black stools, admits to having severe GERD or reflux di sease takes cholestyramine for that and Prilosec according to her. She admits to epigastric abdominal pain but denies any crampy lower abdominal pain denies any urinary complaints denies any constipation or diarrhea denies any melena. The patient has chronic headache and chronic blurring of vision denies any difficulty in swallowing denies any shortness of breath or chest pain does have some chronic cough. Patient has chronic aches and pains but no new joint pain skin rashes, she has history of depression that seems to be stable. At baseline patient is fairly independent and is able to carry out her activities of daily living without any support. On presenting to the emergency room patient was febrile with a temperature of more than 102, tachycardic and intermittently tachypneic with respirations more than 20. Blood pressure was stable. Labs show a normal WBC count and normal hemoglobin platelets 252 however the bands are 27 lactic acid elevated at 3.2 chemistries unremarkable glucose elevated at 251 AST 43 Chest x-ray shows mild inflammation versus scarring at the left lung base, CT chest abdomen pelvis according to the ER provider is interpreted as negative patient does have diverticulosis. Given the fact that patient had met the sepsis screen, has elevated lactic acid and fever she is being admitted to the hospital for further management 12/08 Patient seen and examined, no acute overnight events tolerating p.o. diet well sitting comfortably in the chair Labs are stable lactic acidosis resolved Discontinue Holman catheter transfer to medical status Microbiology is negative so far 12/09 Patient states she has right upper quadrant achy pain which is constant. She is different than her acid reflux at home. She did have a small brown soft stool yesterday per nursing note. No fevers or chills. A little bit of nausea this morning and feels she has a bit of a stomachache because she is hungry. Wanting to go home. Review of Systems: denies headache/fever/chills/vomiting/chest pain/cough/dyspnea/diarrhea. Otherwise see above. - Constitutional Vitals: Vital Signs Temp Pulse Resp BP Pulse Ox 98.5 F 92 H 18 151/82 95 12/09/18 03:45 12/09/18 03:45 12/09/18 03:45 12/09/18 03:45 12/09/18 03:45 Period Temp Pulse Resp BP Sys/Brooke Pulse Ox Last 24 Hr 98.0 F-99 F 89-99 16-24 132-154/69-82 90-95 Intake and Output 12/08/18 12/09/18 12/09/18 21:59 05:59 13:59 Intake Total 320 350 50 Output Total 1800 1126 200 Balance -1480 -776 -150 Weight 82.781 kg Intake & Output: Intake & Output 12/08/18 12/09/18 12/09/18 21:59 05:59 13:59 Intake Total 320 350 50 Output Total 1800 1126 200 Balance -1480 -776 -150 Weight 82.781 kg Intake: IV 50 50 50 Zosyn 3.375 gm In Dextrose 5% 50 50 50 in Water 50 ml @ 100 mls/hr IV Q6H [facility] Rx#:[id number] Oral 270 300 Output: Void Amount 1800 1125 200 # of times incontinent of urine 1 Other: Meal Nourishment/Supplement Percent of Meal Consumed 90 Feeding Ability Independent Urine Appearance Clear Clear Urine Color Pale Bright Yellow Urine Odor Normal Normal Stool Size Small Stool Color Brown Stool Consistency Soft # Bowel Movements 1 Exam: General: Alert, Awake, No acute Distress Eyes/N/T: EOMI, Head/Neck: neck supple, CV: RRR, No murmurs, Pulm: Clear b/l, no wheezing/rhonchi/rales Abd: soft, not particularly tender on palpating over the abdomen including right upper quadrant, no epigastric tenderness to palpation , +BS x4 Ext: no clubbing/cyanosis/edema Neuro: Alert, no focal deficits, moves all extremities, Skin: warm/dry Medical - PN: Obj Da - Labs CBC & Chem 7: 12/09/18 03:50 12/09/18 03:50 Labs: Abnormal Lab Results 12/08/18 12/08/18 12/07/18 03:45 03:45 12:20 RBC 3.91 L Hgb 11.9 L Gran % 86.1 H Lymph % (Auto) 7.7 L Gran # 8.6 H Lymph # (Auto) 0.8 L Band Neutrophils % Lymphocytes % VBG Lactic Acid Chloride BUN 7 L Glucose 146 H POC Glucose Calcium 8.5 L POC WB Ioniz Calcium Phosphorus 2.0 L GGT 107 H AST Albumin 3.0 L Albumin/Globulin Ratio 0.9 L Urine Glucose (UA) 50 A Urine Ketones 5/tr A 12/07/18 12/07/18 12/07/18 11:40 11:40 11:40 RBC Hgb Gran % Lymph % (Auto) Gran # Lymph # (Auto) Band Neutrophils % 27 H Lymphocytes % 1 L VBG Lactic Acid 3.2 H Chloride 95 L BUN Glucose 251 H POC Glucose 251 H Calcium POC WB Ioniz Calcium 1.15 L Phosphorus GGT AST 43 H Albumin Albumin/Globulin Ratio Urine Glucose (UA) Urine Ketones Meds: Medications Acetaminophen (Tylenol) 650 mg PO Q6HP PRN PRN Reason: PAIN/FEVER > 101 Hydrocodone Bitart/Acetaminophen ([place] 10/325mg) 1 tab PO Q6HP PRN PRN Reason: Pain Last Admin: 12/08/18 23:25 Dose: 1 tab Documented by: Aspirin (Ecotrin) 325 mg PO DAILY [facility] Calcium Carbonate/Glycine (Tums) 500 mg CHEWED Q4HP PRN PRN Reason: Dyspepsia Last Admin: 12/08/18 16:49 Dose: 500 mg Documented by: Cholestyramine Resin (Questran Light) 4 gm PO QDAY [facility] Heparin Sodium (Porcine) (Heparin) 5,000 unit SQ Q12 [facility] Last Admin: 12/08/18 21:06 Dose: 5,000 unit Documented by: Piperacillin Sod/Tazobactam (Sod 3.375 gm/ Dextrose) 50 mls @ 100 mls/hr IV Q6H [facility]; Protocol Last Infusion: 12/09/18 06:12 Dose: Infused Documented by: Lorazepam (Ativan) 0.5 mg PO HS [facility] Last Admin: 12/08/18 21:06 Dose: 0.5 mg Documented by: Losartan Potassium (Cozaar) 50 mg PO DAILY [facility] Last Admin: 12/08/18 10:58 Dose: 50 mg Documented by: Naloxone HCl (Narcan) 0.1 mg IV Q2MIN PRN PRN Reason: Opiate Reversal Omeprazole (Prilosec) 20 mg PO ACB [facility] Last Admin: 12/09/18 06:51 Dose: Not Given Documented by: Ondansetron HCl (Zofran) 4 mg IV Q4HP PRN PRN Reason: Nausea And Vomiting Propranolol HCl (Inderal) 10 mg PO TID [facility] Last Admin: 12/08/18 21:06 Dose: 10 mg Documented by: Simvastatin (Zocor) 20 mg PO HS [facility] Last Admin: 12/08/18 21:06 Dose: 20 mg Documented by: Sodium Chloride (Saline Flush) 10 ml IV Q8 [facility] Last Admin: 12/09/18 05:29 Dose: 10 ml Documented by: Medical - PN: A/P - Time Spent With Patient Total time spent is greater than 50% in coordination of care (as documented) at patient's floor/unit and/or counseling patient: - Narrative A/P Narrative: A: *Sepsis: resolved, -Source of infection uncertain, likely GI pathology -Lactic acidosis resolved, bandemia resolved, fever defervesced *N/V: 2/2 gastroenteritis *HTN/HLD: *Depression/anxiety: *Chronic pain: *h/o CAD/CVA: on ASA/BB/Statin *GERD * P: -Zosyn to augmentin -f/u AXR for abd pain -Continue home ARB/BB -cont home ASA/statin -IV PPI - -ppx: Heparin/home ppi Medical - PN: Qual - Stroke Symptom Onset Unknown: No - VTE Deep Vein Thrombosis/Pulmonary Embolism Present on Admission: No
[2018-12-09 07:27] LABS: Hematocrit 38.3 % (36.0-48.0); Hemoglobin 12.6 g/dL (12.0-15.0); Mean Cell Volume 92.5 fL (80.0-100.0); Mean Corpuscular HGB Conc 32.8 g/dL (31.0-36.0); Mean Platelet Volume 8.2 fL (7.4-10.4); Platelet Count 263 K/mcL (140-440); RBC 4.14 M/mcL (4.00-5.20); Red Cell Distribution Width 13.8 % (11.5-14.5); WBC 8.2 K/mcL (4.5-11.0)
[2018-12-09] MEDS ORDERED: OMEPRAZOLE 20 MG CAPSULE PO SCH (07:30)
[2018-12-09 07:57] LABS: ALT/SGPT 28 U/l (0-40); AST/SGOT 27 U/l (0-37); Albumin 3.6 gm/dL (3.2-5.2); Albumin/Globulin Ratio 1.1 (1.0-2.3); Alkaline Phosphatase 58 U/L (39-117); Bilirubin,Direct < 0.2 mg/dL (0.0-0.3); Bilirubin,Total 0.4 mg/dL (0.0-1.0); Blood Urea Nitrogen 7 mg/dl (8-23); Calcium 9.3 mg/dl (8.6-10.4); Carbon Dioxide 23 mmol/L (22-30); Chloride 101 mmol/L (96-108); Globulin 3.4 gm/dL (2.2-3.7); Glomerular Filtration Rate 67; Glucose 165 mg/dL (70-105); Lactate Dehydrogenase 209 U/L (94-250); Phosphorous 2.3 mg/dL (2.7-4.5); Triglycerides 122 mg/dl (<150)
[2018-12-09] MEDS ORDERED: BISMUTH SUBSALICYLATE 15 ML ORAL.SUSP PO ONE (08:24)
[2018-12-09] MEDS ORDERED: ASPIRIN 325 MG ENTERIC COATED TABLET PO SCH (09:00)
[2018-12-09] MEDS ORDERED: CHOLESTYRAMINE/ASPARTAME 4 GM POWD.PACK PO SCH (09:00)
[2018-12-09 09:13] LABS: Band Neutrophils % 3 % (0-10); Eosinophils % (Manual) 3 % (0-7); Lymphocytes % 18 % (15-49); Monocytes % (Manual) 13 % (1-12); Platelet Estimate NORMAL (NORMAL); RBC Morphology NORMAL (NORMAL); Segmented Neutrophils % 63 % (38-78)
--- NOTE | 2018-12-09 09:18 | XRay Report ---
HISTORY: Upper abdominal pain FINDINGS: There are multiple surgical clips in the kael hepatis and a few in the gallbladder fossa. Bowel gas pattern is normal. The stomach is decompressed. There is a normal amount stool in the colon. No abnormal air-fluid level is present and there is no free intra-abdominal air. Densely calcified plaques are present in the aorta and splenic artery. 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 IMPRESSION: No acute abnormality Interpreted and Authenticated by: Horace Brice 12/09/18
[2018-12-09] MEDS: HEPARIN 5,000 UNIT/ML VIAL SQ SCH (09:46)
[2018-12-09] MEDS: HYDROcodone/APAP 10/325MG TABLET PO PRN (09:47)
[2018-12-09] MEDS: PROPRANOLOL 10 MG TABLET PO SCH (09:47)
[2018-12-09] MEDS: LOSARTAN 50 MG TABLET PO SCH (09:47)
--- NOTE | 2018-12-09 10:35 | Discharge Summary ---
Medical - DS: Prov Patient information: Note initiated : 12/09/18 at 10:31 am Service Date, if different from initiated Date: [] Patient: Elva Osuna 83 y/o F admitted on 12/07/18 for nausea, vomiting, decreased LOC. Chief Complaint: [] Date of admission: 12/07/18 16:52 Discharge date: 12/09/18 Primary care physician: Ivette Hutson Consults: 12/07/18 15:17 Consult to Physician [CONS] Stat Comment: Consulting Provider: Tonny Cobb Reason For Exam: Physician to Consult Medical - DS: Meds - Discharge Medications Prescriptions: Amoxicillin/Potassium Clav [Augmentin] 875 mg PO Q12H #8 tab Aspirin [Lite Coat Aspirin] 81 mg PO DAILY #30 tab Lactobacillus [Culturelle] 1 cap PO BID #60 cap Active and Home Medications: Home Medications Aspirin [Lite Coat Aspirin] 325 mg PO DAILY 12/07/18 [History Confirmed 12/07/18 Last Taken Unknown] Cholestyramine Light Powder 4 g PO QDAY 12/07/18 [History Confirmed 12/07/18 Last Taken Unknown] Estradiol [Estrace] 2 mg PO DAILY 12/07/18 [History Confirmed 12/07/18 Last Taken Unknown] HYDROcodone/ACETAMINOPHEN 10 mg PO Q6 12/07/18 [History Confirmed 12/07/18 Last Taken 12/06/18 2100] Losartan [Cozaar] 50 mg PO DAILY 12/07/18 [History Confirmed 12/07/18 Last Taken Unknown] Omeprazole [PriLOSEC] 20 mg PO QSHIFT 12/07/18 [History Confirmed 12/07/18 Last Taken Unknown] Propranolol [Inderal] 10 mg PO TID 12/07/18 [History Confirmed 12/07/18 Last Taken Unknown] Simvastatin [Zocor] 20 mg PO HS 12/07/18 [History Confirmed 12/07/18 Last Taken Unknown] Home Medications Cholestyramine Light Powder 4 g PO QDAY 12/07/18 [History Confirmed 12/07/18 Last Taken Unknown] Estradiol [Estrace] 2 mg PO DAILY 12/07/18 [History Confirmed 12/07/18 Last Taken Unknown] HYDROcodone/ACETAMINOPHEN 10 mg PO Q6 12/07/18 [History Confirmed 12/07/18 Last Taken 12/06/18 2100] Losartan [Cozaar] 50 mg PO DAILY 12/07/18 [History Confirmed 12/07/18 Last Taken Unknown] Omeprazole [Prilosec] 20 mg PO QSHIFT 12/07/18 [History Confirmed 12/07/18 Last Taken Unknown] Propranolol [Inderal] 10 mg PO TID 12/07/18 [History Confirmed 12/07/18 Last Taken Unknown] Simvastatin [Zocor] 20 mg PO HS 12/07/18 [History Confirmed 12/07/18 Last Taken Unknown] Amoxicillin/Potassium Clav [Augmentin] 875 mg PO Q12H #8 tablet 12/09/18 [Rx Last Taken Unknown] Aspirin [Lite Coat Aspirin] 81 mg PO DAILY #30 tablet 12/09/18 [Rx Last Taken Unknown] Lactobacillus [Culturelle] 1 cap PO BID #60 capsule 12/09/18 [Rx Last Taken Unknown] Medical - DS: Hosp Hospital course: Mr. Osuna is a 83 year old F Ms. Osuna is a 83 year old F lives by herself with family living next to presents to the emergency room today for evaluation of fever altered mental status and nausea and vomiting abdominal pain. The patient was normal last night around 8 PM when the family checked on her, this morning when the [id number] came on to check on her at around 8:00 the patient was sitting in the chair, confused with vomit all around her, vomit was dark had some food material in it no obvious blood. The patient was not responding appropriately to the questions appeared to be warm and was therefore brought to the emergency room for further evaluation On my evaluation patient appeared alert and oriented, according to the patient and the family she is nearly back to baseline symptoms have resolved since admission, she denies any eating of stale food or eating outside denies any sick contacts, denies any black stools, admits to having severe GERD or reflux disease takes cholestyramine for that and Prilosec according to her. She admits to epigastric abdominal pain but denies any crampy lower abdominal pain denies any urinary complaints denies any constipation or diarrhea denies any melena. The patient has chronic headache and chronic blurring of vision denies any difficulty in swallowing denies any shortness of breath or chest pain does have some chronic cough. Patient has chronic aches and pains but no new joint pain skin rashes, she has history of depression that seems to be stable. At baseline patient is fairly independent and is able to carry out her activities of daily living without any support. On presenting to the emergency room patient was febrile with a temperature of more than 102, tachycardic and intermittently tachypneic with respirations more than 20. Blood pressure was stable. Labs show a normal WBC count and normal hemoglobin platelets 252 however the bands are 27 lactic acid elevated at 3.2 chemistries unremarkable glucose elevated at 251 AST 43 Chest x-ray shows mild inflammation versus scarring at the left lung base, CT chest abdomen pelvis according to the ER provider is interpreted as negative patient does have diverticulosis. Given the fact that patient had met the sepsis screen, has elevated lactic acid and fever she is being admitted to the hospital for further management 12/08 Patient seen and examined, no acute overnight events tolerating p.o. diet well sitting comfortably in the chair Labs are stable lactic acidosis resolved Discontinue Holman catheter transfer to medical status Microbiology is negative so far 12/09 Patient states she has right upper quadrant achy pain which is constant. She is different than her acid reflux at home. She did have a small brown soft stool yesterday per nursing note. No fevers or chills. A little bit of nausea this morning and feels she has a bit of a stomachache because she is hungry. Wanting to go home. Abdominal x-ray on remarkable, normal bowel movement this morning. Patient states her abdominal pain is better after eating. Also counseled her on acid reflux measures regarding foods and elevating head of bed and not eating 2 hours prior to bedtime and staying upright for 30 minutes after eating. Doing well and stable for discharge. Discharge diagnosis: Gastroenteritis sepsis Secondary discharge diagnosis: Hypertension hyperlipidemia depression anxiety CAD stroke chronic pain GERD - Time Spent with Patient Total time spent providing and/or coordinating discharge services: Greater than 30 minutes Medical - DS: Exam - Constitutional Vitals: Vital Signs Temp Pulse Resp BP Pulse Ox 12/09/18 07:19 98.6 F 20 149/78 95 12/09/18 03:45 98.5 F 92 H 18 151/82 95 12/09/18 00:00 99 F 89 20 154/78 93 12/08/18 19:15 98.0 F 89 18 132/69 90 12/08/18 16:00 98.6 F 96 H 16 152/80 94 12/08/18 12:00 98.0 F 91 H 16 141/69 93 Intake and Output 12/08/18 12/09/18 12/09/18 21:59 05:59 13:59 Intake Total 320 350 50 Output Total 1800 1126 400 Balance -2558 -776 -350 Intake: IV 50 50 50 Zosyn 3.375 gm In Dextrose 5% 50 50 50 in Water 50 ml @ 100 mls/hr IV Q6H [facility] Rx#:[id number] Oral 270 300 Output: Urine Catheter Amount 200 Void Amount 1800 1125 200 # of times incontinent of urine 1 Other: Meal Nourishment/Supplement Percent of Meal Consumed 90 Feeding Ability Independent Urine Appearance Clear Clear Clear Urine Color Pale Bright Yellow Bright Yellow Urine Odor Normal Normal Normal Stool Size Small Stool Color Brown Stool Consistency Soft # Bowel Movements 1 Weight 82.781 kg Medical - DS: Data Labs on day of discharge: Labs from last 24 hours 12/09/18 12/09/18 03:50 03:50 WBC 8.2 RBC 4.14 Hgb 12.6 Hct 38.3 MCV 92.5 MCH 30.4 MCHC 32.8 RDW 13.8 Plt Count 263 MPV 8.2 Total Counted 100 Seg Neutrophils % 63 Band Neutrophils % 3 Lymphocytes % 18 Monocytes % (Manual) 13 H Eosinophils % (Manual) 3 Platelet Estimate Normal RBC Morphology Normal Sodium 138 Potassium 3.9 Chloride 101 Carbon Dioxide 23 Anion Gap 14.0 BUN 7 L Creatinine 0.8 GFR Calculation 67 Glucose 165 H Uric Acid 2.0 L Calcium 9.3 Phosphorus 2.3 L Magnesium 2.2 Total Bilirubin 0.4 Direct Bilirubin < 0.2 GGT 125 H AST 27 ALT 28 Alkaline Phosphatase 58 Lactate Dehydrogenase 209 Total Protein 7.0 Albumin 3.6 Globulin 3.4 Albumin/Globulin Ratio 1.1 Triglycerides 122 Preliminary micro results at discharge 12/07/18 11:56 Blood Culture - Preliminary Blood 12/07/18 12:04 Blood Culture - Preliminary Blood Medical - DS: A/P - Patient/Caregiver Discharge Instructions Activity: increase activity as tolerated Diet: Regular Diet Prescriptions: Amoxicillin/Potassium Clav [Augmentin] 875 mg PO Q12H #8 tab Aspirin [Lite Coat Aspirin] 81 mg PO DAILY #30 tab Lactobacillus [Culturelle] 1 cap PO BID #60 cap - Follow up Plan Follow up with: Ivette Hutson MD [Primary Care Provider] - Disposition: Home, Self-Care Prognosis: Fair Rehab Potential: Fair Overall status at discharge: patient is progressing back to baseline Medical - DS: Qual - VTE Deep Vein Thrombosis/Pulmonary Embolism Present on Admission: No
[2018-12-09] MEDS ORDERED: LACTOBACILLUS 1 CAPSULE PO SCH (21:00)
== END 2018-12-09 12:20 | disposition home or self-care (01) | DRG 872 ==
LOC: ED 11:26 → ICU 16:45 → MEDSUR 12-08 09:55
PROVIDERS: ADMIT Internal Medicine; ATTEND Internal Medicine